=== PATIENT | male | born 1955 | race Caucasian/White ===

== ENCOUNTER 2024-09-30 06:39 | Day surgery (SDC) | payer MEDICARE, SELFPAY ==
[2024-09-14 13:55] VITALS: BMI 46.3
[2024-09-30] VITALS (17 sets, daily range): BP systolic 114–149; BP diastolic 70–99; PULSE 71–105; RESP 6–19; TEMP 35.9–36.6; O2SAT 92–98; BMI 45.8
--- NOTE | 2024-09-30 06:50 | DI.RAD.S_ITS ---
PROCEDURE: XR KNEE RT 1TO2V INDICATIONS: TKA TECHNIQUE: 2 view(s) of the knee acquired. COMPARISON: None. FINDINGS: Bones: Patient is status post knee joint arthroplasty. Hardware components are in expected positions. Visualized bony structures are intact. Soft tissues: Overlying postoperative changes are noted. IMPRESSION: Expected post-operative appearance of a knee arthroplasty. Dictated by: Evon Chavarria MD, PhD on 09/30/2024 at 12:10 Approved by: Evon Chavarria MD, PhD on 09/30/2024 at 12:10
--- NOTE | 2024-09-30 07:47 | PM.PREOP ---
Pre-operative Note Interval Note History & Physical reviewed/Exam performed by Physician: Yes Changes to H&P: No
--- NOTE | 2024-09-30 07:53 | P.OP_ITS ---
Operative Date/Time/Diagnoses Date of procedure: 09/30/24 Time of procedure: 08:50 Pre-op diagnosis: Right knee arthritis M17.11 BMI 46 z68.42 Post-op diagnosis: same Procedure & Clinicians Procedure: Total knee arthroplasty, right CPT code 48660 Robotic assisted surgery S2 [id number] Computer navigated assisted surgery 17512 Same procedure as scheduled: Yes Indications: The patient has significant pain associated with osteoarthritis of the right knee. It is associated with morning stiffness. Pain interferes with daily normal function including ambulation standing and any activities that are weight-bearing. It interferes with sleep. There is crepitation with range of motion. There is marked joint line tenderness. X-rays show significant levels of osteoarthritis. attempted previous conservative treatment has been rendered. The patient has failed exercise program, medications and previous injections. Patient is indicated for total knee arthroplasty. The risks and benefits of the procedure have been discussed with the patient and given the opportunity to ask questions. The risks of surgery include but are not limited to infection, malunion, nonunion, persistence of pain, damage to nerves and blood vessels, posttraumatic arthritis, DVT, PE, cardiopulmonary complications and . The patient expressed a thorough understanding of the risks and benefits of surgery and has elected to proceed. Consent was signed. During the operation, the services of a physician surgical sales representative were medically indicated and necessary to provide the exposure of the operative site for the surgical procedure and to maintain the limb in a proper position to carry out the operation safely and efficiently. Without a qualified assistant fitness manager being present this would extended the operative procedure and made the procedure technically more difficult to perform. Surgeon: Nuvia Francis Sexton Helper: Nicolas Mcghee Anesthesia Type: General, Peripheral nerve block and Local Operative Notes Findings: Varus knee arthritis tricompartmental right knee large osteophytes. Full- thickness cartilage loss. Closure Type: primary Specimen(s): none sent Prosthetic devices, grafts, tissues, transplants, or devices: [employer] Nephew journey 2 bcs total knee arthroplasty Femur cobalt chromium size 8 Tibia size 7 Poly 11 mm Patella 35 x 9 round Estimated Blood Loss (mL): 30 Blood products transfused: none Tourniquet time (min): 91 Procedure in detail: Patient was seen in the preoperative area where the patient and site of surgery were identified in the operative knee was marked informed consent confirmed. This was the right knee. Patient received the appropriate weight based preoperative antibiotics this was 3g of Ancef. And other preoperative medications and was taken to the operating room placed on operating table in the supine position. Spinal anesthetic were administered. The operative extremity was then prepped and draped in the standard sterile fashion with a nonsterile tourniquet high on the thigh. Patient was placed on the green foam bolsters. A lateral post was placed at the level of the proximal thigh /trochanter area as a lateral post. Formal time-out procedure was performed confirming the patient's side and site of surgery and administration of appropriate preoperative antibiotics and implants were in the room accounted for. All were in agreement. Patient received a preoperative dose of tranexamic acid and then a 2nd dose at tourniquet release Patient was prepped and draped in the standard sterile fashion and the foot was placed into the leg khalil. This was taken into high flexion and the incision was marked out over the anterior knee to the level of the medial tubercle tubercle. The Esmarch was then used for exsanguination and the tourniquet was inflated to 250 mmHg. Was made through the skin and subcutaneous tissue in high flexion this was then brought down into 30? of flexion for the medial parapatellar arthrotomy. A marker pen was used to mary the arthrotomy site for later repair. Joint fluid was evacuated. The anterior osteophytes and soft tissues were removed. Routine medial release was initially made along the medial proximal tibia with Bovie. The patella was 1st cut using the saw sized and prepped and then subluxed throughout the case and protected. The leg was then taken into extension and the patella was everted and the patella was cut to accommodate the patellar button. This was sized to a 35 mm button for a 9 mm thickness to recreate the original dimensions of the patella. Poly was removed and the protector replaced and the patella was subluxed and the knee was taken back up into flexion and attention was returned to the femur. Then the rotational landmarks of [place]ites[place] line and the trans epicondylar axis were marked on the femur with electrocautery. ACL and PCL were released. Then the Cori robotic pins were placed into the femur and tibia and the race set up. Landmarks were established and the robotic planning was commenced. Plan was developed and improved and adjusted as necessary to create a balanced knee. Initial alignment was 1 degree of varus Planned alignment was 0? of varus Robotic planning was modified to achieve a 1-2 mm balanced gaps in flexion and extension in the medial and lateral compartments. Initial range of motion was approximately 5? to 95?. Due to the flexion contracture additional 2 mm were taken off the distal femur. And during the plan completion 5? of flexion was placed into the distal femur in 4? of external rotation to match the [place] notch. Knee was initially balanced for a 10 mm poly Once the Plan was satisfactory the bur was used to remove the distal femur then Attention was then turned to the tibia and the tibial resection was made in accordance with the robotic planning. The extension block was trialed confirming achieved plan alignment in extension. And the flexion block were trialed. There was still some tightness in extension so another 2 mm was taken off the tibia after this block fit nicely to full extension. Next the 5 in 1 cutting block was applied to the distal femur and the chamfer cuts completed. The trials were placed. And the femoral notch was cut a standard fashion using Reamer then slap hammer. The knee was trialed and the checked. Knee was balanced in flexion extension. Range of motion 0-125 degrees was obtained limited by thigh/ calf impingement. The rotation femoral trial was marked Bovie on the bone and checked with a long anthony. The tibia was then finished with a drill and flange cut and then The trial implants were removed. Then in extension the posterior capsule was injected with a mixture of 40 mL of 0.25% Marcaine and 20 mL of Exparel (266 mg) with care to avoid excessive in jection posterior laterally. The remainder of this was saved for the capsule and subcutaneous tissue and placed during cement curing. The wound and bone was irrigated with pulsatile lavage. This was then dried with a sponge. The components were verified and opened and the cement was mixed. Cement was applied to the components and then to the bone then the tibia was cemented in place 1st followed by the femur then the patella. Excess cement was removed. With care looking around the back of the knee. Remainder of the injection was injected around the capsule. trial poly was placed back in the leg was placed into extension for the patellar cementing. After this was cured approximately 15 minutes later and the dilute Betadine solution was placed for at least 3 minutes in the wound this was then irrigated out and the final poly was placed. This was a 11 mm poly. Tourniquet was released and hemostasis was achieved. Full range of motion 0-125 was achieved. There was indicated need for lateral release and this was completed allowing the patella to sit uniformly in the trochlear groove. Final 1g of tranexamic acid was given IV at the time of tourniquet release. The capsule was closed with 1. Ethibond suture. Followed by a running Quill stitch. Tracking again was checked to be smooth with full range of motion after capsular closure. Subcutaneous layer was closed with 3-0 Vicryl suture. Skin was closed with a running V lock suture Stratafix Monocryl type suture and Dermabond. An Aquacel dressing was placed . An Rangel wrap was applied. Anesthetic was terminated the patient was woken from anesthesia and taken to recovery room in good condition. There no immediate complications from this procedure. The patient will be maintained on a standard total knee replacement protocol with weight-bearing as tolerated. Complications: none Post-operative Condition: stable Disposition: PACU Plan for aftercare: Standard total knee postoperative precautions. Patient was stay in the hospital overnight due to comorbidities and plan discharge home tomorrow. Full weight- bearing as tolerated. Knee range of motion as tolerated and commence physical therapy within 1 week. Aspirin 81 mg b.i.d. for DVT prophylaxis. Additionally we will use Indocin 25 mg 3 times a day with Pepcid for HO prevention. Follow up in Orthopedic Clinic in 2 weeks.
[2024-09-30] MEDS: ACETAMINOPHEN 325 MG TABLET 975 MG PO (08:02)
[2024-09-30] MEDS: CELECOXIB 200 MG CAPSULE 400 MG PO (08:03)
[2024-09-30] MEDS: LACTATED RINGERS 1,000 ML 42 ML IV (08:03)
--- NOTE | 2024-09-30 08:35 | SUR.PREOP ---
Block start time [0837] . Timeout completed at 0835. Monitoring initiated and maintained throughout procedure. Oxygen and medications given by anesthesiologist. Patient remained stable throughout procedure, no adverse reactions noted. Block end time [0843].
[2024-09-30] MEDS: CEFAZOLIN VIAL 3 GM in SODIUM CHLORIDE 0.9% 100 ML IV ×2 (09:00→17:50)
[2024-09-30] MEDS: TRANEXAMIC ACID 1,000 MG VIAL 1000 MG INJ ×2 (09:01→10:40)
--- NOTE | 2024-09-30 09:20 | SUR.OPER ---
Supine on padded OR bed. wedge and Pillow under head, arms secured on padded armboards <90 degree abduction. Safety belt across torso. Non-operative leg secured with tape over blanket over lower leg. Operative leg secured in DeMayo/Bharat/Nathe positioner. Foam padded brace at thigh of operative leg.
[2024-09-30] MEDS: BUPIVACAINE LIPOSOME 266 MG/20 ML VIAL INJ (09:23)
[2024-09-30] MEDS: BUPIVACAINE 0.25% W/ EPI 30 ML VIAL 60 ML INJ (09:24)
[2024-09-30] MEDS: OXYCODONE IR 5 MG TABLET PO ×2 (12:05→16:26)
[2024-09-30] MEDS: HYDROMORPHONE 0.5 MG INJ IV (13:09)
[2024-09-30] MEDS: LACTATED RINGERS 1,000 ML 100 ML IV ×2 (13:10→21:50)
[2024-09-30] MEDS: INDOMETHACIN 25 MG CAPSULE PO (15:37)
--- NOTE | 2024-09-30 16:08 | PT.IIE ---
Current Diagnoses Bilateral primary osteoarthritis of knee (09/30/24) Unilateral primary osteoarthritis, right knee (09/30/24) Other specified joint disorders, unspecified knee (09/30/24) Surgery Performed Operation Date: 09/30/24 08:45 Actual Procedures p Total Knee Arthroplasty - Robot(Right) - Nuvia Francis MD Surgical History (Last Updated 09/14/24 @ 14:23 by Alexa Potts, RN) H/O vasectomy (~1992) History of colonoscopy with polypectomy History of repair of rotator cuff History of total left knee replacement (01/2022) Hx of bilateral cataract extraction Hx of inguinal hernia repair Hx of laparoscopic gastric banding Medical History (Last Updated 09/14/24 @ 14:23 by Alexa Potts, RN) Anxiety Asthma Angela's esophagus Bipolar disorder BPH (benign prostatic hyperplasia) Chronic obstructive asthma CVA (cerebral vascular accident) Depression Glaucoma HLD (hyperlipidemia) HTN (hypertension) Insomnia XANDER (obstructive sleep apnea) Osteoarthritis Osteopenia Overactive bladder PVCs (premature ventricular contractions) PVD (peripheral vascular disease) RBBB (right bundle branch block) Tardive dyskinesia Physical Therapy Inpatient Evaluation/Re-Eval M1 PT/OT-IP Prior Functional Status Start: 09/30/24 17:38 Freq: NEEDED Status: Active Protocol: Document 09/30/24 16:08 AB (Rec: 09/30/24 17:56 AB [id number]) Medical Review Prior Functional Status Medical History Reviewed Yes Communication able to make needs known Mobility and Gait pt stated that he was modified independent with mobilities using a SPC for ambulation Activities of Daily Living and IADL's Pt states needing assist for his shoes. Social History Household Members spouse,children Living Arrangements House Number of Floors (Floors) One Floor Number of Stairs To Enter/Railing? 3 steps with left post to enter the house Home Environment High Toilet,Walk in Shower Home Equipment Front Wheel Walker,Straight Cane,Shower Seat without Backrest,Hand Held Shower,Bed Rails,Grab Bars Near Toilet Additional Social History Comment pt will have his spouse assist ; has a son and daughter to assist him if needed Pt states has a bath bench with no back. Pt has right bed rail. M2 PT-IP Current Condition Start: 09/30/24 17:38 Freq: NEEDED Status: Active Protocol: Document 09/30/24 16:08 AB (Rec: 09/30/24 17:56 AB [id number]) Physical Therapy Current Condition Current Condition Evaluation Date 09/30/24 Treatment Diagnosis s/p R TKA; difficulty in walking Onset Date 09/30/24 M3 PT-IP Subjective Start: 09/30/24 17:38 Freq: NEEDED Status: Active Protocol: Document 09/30/24 16:08 AB (Rec: 09/30/24 17:56 AB [id number]) Subjective Physical Therapy Visit Type Type Initial Evaluation Visit Start Time 16:08 Visit Stop Time 16:45 Number of CHIEF MINISTER Visits 0 Physical Therapy Visit Comments Patient Comments agreeable to do PT Therapy Pain Assessment Pain When Pain Assessed At Rest Pain Present Pain Present Pain Reported Location right knee Intensity 6 Scale Used increases with movement Pain Management Techniques Apply Cold,Distraction, Modification of Treatment,Re- positioning,Timing of Activity with Medications M4 PT-IP Mobility and Gait Start: 09/30/24 17:38 Freq: NEEDED Status: Active Protocol: Document 09/30/24 16:08 AB (Rec: 09/30/24 17:56 AB [id number]) PT-Bed Mobility Assessment Supine to Sit Supine to Sit Minimal Assistance,1 Person Assistance,Head of Bed Elevated,Bedrails Sit to Supine Sit to Supine Maximum Assistance,2 Person Assistance PT-Transfer Assessment Sit to and From Stand Sit to and from Stand Maximum Assistance,2 Person Assistance,Use of Upper Extremities Equipment Transfer Assistive Device Gait Belt,Front Wheeled Walker Comments Mobility Comments pt in bed and agreeable to do PT. obtained PLOF and home set up. pt completed heel slide prior to gettting up. BP: 137 /83. O2 sat RA 95% completed supine to sit min A and cues with use of R rail. c/o increase R knee pain. O2 sat: 91%. cued for deep breathing. pt able to sit on EOB SBA. sit to stand max A x 2 but only able to partially stand up and needed to sit back on EOB due to c/o increase R knee pain. pt attempted x 3 more sit <>stand requiring max Ax 2 and max cues. instructed pt to take side stepping to position towards HOB and only able to complete 1 step on first attempted and needed to sit down again but able to take side steps ~ 3 ft towards HOB on 2nd attempt using FWW max A x 2 and max cues. (+) R knee buckling needing assist to stabilize and cues for L quads activation. assist pt back in bed max A x 2 and max cues. positioned pt in bed. Left pt with nurse and RT. provided pt with post-op folder. Gait Assessment Comments Gait Comments sidestepping towards HOB max A x 2 and max cues. PT-Balance Assessment Sitting Balance and Reactions Static Sitting Balance Ability Normal Dynamic Sitting Balance Ability Good Standing Balance and Reactions Static Standing Balance Ability Poor Dynamic Standing Balance Ability Poor Device Used FWW M5 PT-IP Objective Assessments Start: 09/30/24 17:38 Freq: NEEDED Status: Active Protocol: Document 09/30/24 16:08 AB (Rec: 09/30/24 17:56 AB [id number]) Orientation Orientation/Cognition Level of Alertness Alert Orientation Name,Place,Situation Language Function Ability No Deficits Noted Safety Awareness Understands Safety Issues Memory Description No Deficits Noted Gross Range of Motion Lower Extremity ROM Assessment Right Impaired Impairments R knee flexion: ~ 60 deg Strength Lower Extremity Strength Assessment Left Impaired Hip 3+/5 Knee 3+/5 Sensation Assessment Sensation Gross Sensation WNL Muscle Tone Muscle Tone WNL Yes M6 PT-IP Treatment Start: 09/30/24 17:38 Freq: NEEDED Status: Active Protocol: Document 09/30/24 16:08 AB (Rec: 09/30/24 17:56 AB [id number]) Physical Therapy Treatment Exercises Exercises Heel Slides Education Education Provided Precautions,Weight Bearing Status,Post-Op Packet,Safety M7 PT-IP Assessment and Plan Start: 09/30/24 17:38 Freq: NEEDED Status: Active Protocol: Document 09/30/24 16:08 AB (Rec: 09/30/24 17:56 AB [id number]) PT Summary Assessment and Plan Potential Rehabilitation Potential Fair Status of Condition at Evaluation Evolving Summary Impairments Pain,ROM,Strength,Balance, Coordination,Sensation,Tone, Cognition,Bed Mobility, Transfers,Gait,Activity Tolerance Assessment Summary pt is a 69 y/o M s/p R TKA POD 0. pt is WBAT on RLE. pt requiring max A x 2 and max cues using FWW and unable to ambulate today but able to complete sidestepping to position towards HOB requiring max A x 2 and max cues with ( +) R knee buckling. pt with c/ o increase R knee pain affecting mobility. d/c plan depending on progress but at this time may require SNF rehab. will continue to assess progress. Goals Bed Mobility Goal Minimal Assistance Transfer Goal Minimal Assistance,Front Wheeled Walker Gait Goal Minimal Assistance,Front Wheel Walker Gait Distance 50 Other Goals improve bed mobility, transfers, ambulation using fWW ~ 150ft SBA up/down 3 steps SPC + CARBON SETTER CGA Days to Meet Goals 5 Frequency of Treatment Frequency Of Treatment Twice a Day Treatment Plan Physical Therapy Treatment Plan Bed Mobility Training,Transfer Training,Gait Training, Therapeutic Exercise,Balance Retraining,Post Op Education, Discharge Planning,Hot or Cold Pack,Neuromuscular Re-ed, Coordination Retraining,Manual Therapy Weight Bearing Status Weight Bearing Status Weight Bear as Tolerated Allowed Weight Bearing Amount (enter % RLE WBAT or #) (%) Recommendations To Nursing Amount of Assist Needed 2 Person Assist Discharge Recommendations PT Discharge Recommendations Home with 04/02 Assist Available,Home Health,SNF Rehab,Home vs SNF Transportation Needs at Discharge Private Vehicle,Wheelchair/ Cabulance - PT assist 2
[2024-09-30] MEDS: ACETAMINOPHEN 325 MG TABLET 650 MG PO (16:26)
--- NOTE | 2024-09-30 16:40 | OT.IP.EVAL ---
Current Diagnoses Bilateral primary osteoarthritis of knee (09/30/24) Unilateral primary osteoarthritis, right knee (09/30/24) Other specified joint disorders, unspecified knee (09/30/24) Surgery Performed Operation Date: 09/30/24 08:45 Actual Procedures p Total Knee Arthroplasty - Robot(Right) - Nuvia Francis MD Past Medical History (Last Updated 09/14/24 @ 14:23 by Alexa Potts, RN) Anxiety Asthma Angela's esophagus Bipolar disorder BPH (benign prostatic hyperplasia) Chronic obstructive asthma CVA (cerebral vascular accident) Depression Glaucoma HLD (hyperlipidemia) HTN (hypertension) Insomnia XANDER (obstructive sleep apnea) Osteoarthritis Osteopenia Overactive bladder PVCs (premature ventricular contractions) PVD (peripheral vascular disease) RBBB (right bundle branch block) Tardive dyskinesia Surgical History (Last Updated 09/14/24 @ 14:23 by Alexa Potts RN) H/O vasectomy (~1992) History of colonoscopy with polypectomy History of repair of rotator cuff History of total left knee replacement (01/2022) Hx of bilateral cataract extraction Hx of inguinal hernia repair Hx of laparoscopic gastric banding Occupational Therapy Inpatient Evaluation/Re-Eval M1 PT/OT-IP Prior Functional Status Start: 09/30/24 16:55 Freq: NEEDED Status: Active Protocol: Document 09/30/24 16:55 [facility] (Rec: 09/30/24 17:06 [facility] [id number]) Medical Review Prior Functional Status Communication I Mobility and Gait Pt states used a SPC at all times. Activities of Daily Living and IADL's Pt states needing assist for his shoes. Prior Functional Level (Other details) Pt states his , son, and daughter will be home to assist him. Social History Household Members spouse,children Living Arrangements House Number of Floors (Floors) One Floor Number of Stairs To Enter/Railing? 3 steps with left post Home Environment High Toilet,Walk in Shower Home Equipment Front Wheel Walker,Straight Cane,Hand Held Shower,Bed Rails,Grab Bars Near Toilet Additional Social History Comment Pt states has a bath bench with no back. Pt has right bed rail. M2 OT-IP Current Condition Start: 09/30/24 16:55 Freq: Status: Active Protocol: Document 09/30/24 16:55 [facility] (Rec: 09/30/24 17:06 [facility] [id number]) Occupational Therapy Current Condition Current Condition Evaluation Date 09/30/24 Treatment Diagnosis S/P R TKA Diagnosis Onset Date 09/30/24 M3 OT- IP Subjective and Pain Start: 09/30/24 16:55 Freq: Status: Active Protocol: Document 09/30/24 16:55 [facility] (Rec: 09/30/24 17:06 [facility] [id number]) OT- Subjective Occupational Therapy Visit Type Type Initial Evaluation Visit Start Time 16:00 Visit Stop Time 16:40 Occupational Therapy Visit Comments Patient Comments Pt agreed to get up. Pt's right knee bandage weeping and nursing came in to assist. Patient/Caregiver Goals TO go home. OT Pain Assessment Pain When Pain Assessed At Rest Pain Present Pain Present Pain Reported Location right knee Intensity 6 Scale Used Numeric (0 - 10) M4 OT- IP ADL's Start: 09/30/24 16:55 Freq: Status: Active Protocol: Document 09/30/24 16:55 [facility] (Rec: 09/30/24 17:06 [facility] [id number]) OT [id number] Comments OT Self-Feeding Comments Not at meal time. OT ADL-Grooming Comments OT Grooming Comments Not performed. OT ADL-Oral Care Comments Oral Care Comments NOt performed. OT ADL-Dressing General Eval Lower Body Dressing Ability Total Assistance Areas Needing Assistance Socks OT ADL-Toileting Comments OT Toileting Comments Pt states uses a urinal at home. OT ADL-Bathing Comments OT Bathing Comments Not ready to perform at this time. M5 OT- IP IADL's Start: 09/30/24 16:55 Freq: Status: Active Protocol: Document 09/30/24 16:55 [facility] (Rec: 09/30/24 17:06 [facility] [id number]) OT-Instrumental Activities of Daily Living Home Safety Awareness Home Safety Comments Pt is a bit groggy at this time. Meal Preparation Meal Preparation Caregiver Provides Assist Manager Float Manager Float Caregiver Provides Assist M6 OT- IP Functional Cognition Start: 09/30/24 16:55 Freq: Status: Active Protocol: Document 09/30/24 16:55 [facility] (Rec: 09/30/24 17:06 [facility] [id number]) Cognitive Factors Limiting Selfcare Function Cognitive Ability Level of Alertness Drowsy Patient Orientation Name,Place,Situation Attention Span Ability Capable of Focused Attention, Capable of Sustained Attention Ability to Follow Commands Able to Follow One Step Commands with Increased Time, Able to Follow One Step Commands with Repetition Cognitive Comments Cognitive Assessment Comments Pt is a bit groggy, but able to follow commands. Pt needing cues for hand placement on the bed rail, FWW, and bed. OT- Vision and Hearing OT- Hearing Assessment OT- Hearing Assessment WFL OT- Vision Assessment Visual Acuity Glasses For Reading Visual Attentiveness WFL Occular Pursuits WFL M7 OT- IP Mobility and Balance Start: 09/30/24 16:55 Freq: Status: Active Protocol: Document 09/30/24 16:55 [facility] (Rec: 09/30/24 17:06 [facility] [id number]) OT- Bed Mobility Assessment Supine to Sit Supine to Sit Assist Minimal Assistance Sit to Supine Sit to Supine Assist Maximum Assistance,2 Person Assistance OT-Transfer Assessment Sit to and From Stand Sit to and from Stand Maximum Assistance,2 Person Assistance Technique Transfer Destination Bed Transfer Technique Stand Step Pivot Devices Transfer Assistive Devices Gait Belt,Front Wheeled Walker Comments Mobility Comments ERIKA, increased time and heavy use of bed rail to get to the edge of the bed. MAX AX 2 to stand to the FWW andn able to take several steps to the HOB before having to sit down. Pt's right knee buckling. BP Supine 131/92, sitting 141/93 . O2 taken off and initially at 95% and dropped to 91%, left pt in nurse's care. OT- Balance Assessment Sitting Balance and Reactions Static Sitting Balance Ability Good Dynamic Sitting Balance Ability Fair Standing Balance and Reactions Static Standing Balance Ability Poor Dynamic Standing Balance Ability Poor M8 OT- IP Objective Assessments Start: 09/30/24 16:55 Freq: Status: Active Protocol: Document 09/30/24 16:55 [facility] (Rec: 09/30/24 17:06 [facility] [id number]) OT Gross Range of Motion Upper Extremity Range of Motion Assessment Within Functional Limits OT Strength Upper Extremity Strength Assessment Within Functional Limits M9 OT- IP Assessment and Plan Start: 09/30/24 16:55 Freq: Status: Active Protocol: Document 09/30/24 16:55 [facility] (Rec: 09/30/24 17:06 [facility] [id number]) OT Summary Assessment and Plan Potential Rehabilitation Potential Good Analytic Complexity at Evaluation Low Summary OT Impairments Pain,Range of Motion,Strength, Balance,Functional Mobility, Grooming,Dressing,Toileting, Bathing,Toilet Transfers, Shower Transfers,Activity Tolerance Progress Towards Goals Slow Progress due to Pain,Slow Progress due to Medical Issues,Slow Progress due to Activity Tolerance Assessment Summary Pt low complexity and main barriers are pain, steps, and still somewhat groggy from just having sx today. Pt buckling with RLE. Pending progress pt to SNF versus home with 24/7 assist and HH. Goals Self-Feeding Goal Independent Grooming Goal Independent Dressing Goal Minimal Assistance Toileting Goal Independent Bathing Goal Minimal Assistance Toilet Transfer Goal Standby Assistance Shower Transfer Goal Minimal Assistance Days to Meet Goals 15 Frequency of Treatment Other frequency 5x/week Treatment Plan OT Treatment Plan ADL Training,Functional Mobility,Patient/Family Education,Discharge Planning Other Treatment Recommendations and Next Transfer to [facility] with MODA x2 Treatment Focus with FWW. Discharge Recommendations OT Discharge Recommendations SNF Rehab,Home vs SNF Transportation Needs at Discharge Wheelchair/Cabulance
[2024-09-30] MEDS: polyethylene glycoL 3350 17 GM POWD.PACK PO (17:50)
[2024-09-30] MEDS: ATORVASTATIN 20 MG TABLET 80 MG PO (21:28)
[2024-09-30] MEDS: METOPROLOL ER 50 MG TABLET PO (21:28)
[2024-09-30] MEDS: OXYCODONE IR 10 MG TABLET PO (21:28)
[2024-09-30] MEDS: FAMOTIDINE 20 MG TABLET PO (21:29)
[2024-09-30] MEDS: OXYBUTYNIN 5 MG ER TAB PO (21:29)
[2024-09-30] MEDS: ASPIRIN EC 81 MG TABLET PO (21:29)
[2024-09-30] MEDS: DOCUSATE 100 MG CAPSULE PO (21:29)
[2024-09-30] MEDS: PANTOPRAZOLE DR 20 MG TABLET PO (21:29)
[2024-09-30] MEDS: ONDANSETRON 4 MG/2 ML INJ IV (21:29)
[2024-10-01] MEDS: OXYCODONE IR 10 MG TABLET PO ×2 (01:13→05:02)
[2024-10-01] MEDS: CEFAZOLIN VIAL 3 GM in SODIUM CHLORIDE 0.9% 100 ML IV (01:13)
[2024-10-01 05:05] LABS: Hematocrit 44.8 % (41-53); Hemoglobin 15.1 g/dL (13.5-17.5)
[2024-10-01] MEDS: OXYCODONE IR 5 MG TABLET PO ×2 (08:22→14:55)
[2024-10-01] MEDS: DOCUSATE 100 MG CAPSULE PO (08:22)
[2024-10-01] MEDS: FAMOTIDINE 20 MG TABLET PO (08:22)
[2024-10-01] MEDS: polyethylene glycoL 3350 17 GM POWD.PACK PO (08:22)
[2024-10-01] MEDS: ASPIRIN EC 81 MG TABLET PO (08:22)
[2024-10-01] MEDS: INDOMETHACIN 25 MG CAPSULE PO ×2 (08:22→14:54)
[2024-10-01] MEDS: LACTATED RINGERS 1,000 ML 100 ML IV (08:25)
[2024-10-01] MEDS: TIMOLOL 0.5% OPHTH 1 DROPS EYE-BOTH (08:33)
[2024-10-01] MEDS: LATANOPROST 0.005% OPHTH 2.5 ML 1 DROPS EYE-BOTH (08:33)
--- NOTE | 2024-10-01 10:15 | PT.IPTN ---
Current Diagnoses Bilateral primary osteoarthritis of knee (09/30/24) Unilateral primary osteoarthritis, right knee (09/30/24) Other specified joint disorders, unspecified knee (09/30/24) Surgery Performed Operation Date: 09/30/24 08:45 Actual Procedures p Total Knee Arthroplasty - Robot(Right) - Nuvia Francis MD Physical Therapy Treatment Note M2 PT-IP Current Condition Start: 09/30/24 17:38 Freq: NEEDED Status: Active Protocol: Document 09/30/24 16:08 [facility] (Rec: 09/30/24 17:56 [facility] [id number]) Physical Therapy Current Condition Current Condition Evaluation Date 09/30/24 Treatment Diagnosis s/p R TKA; difficulty in walking Onset Date 09/30/24 M3 PT-IP Subjective Start: 09/30/24 17:38 Freq: NEEDED Status: Active Protocol: Document 10/01/24 09:45 [facility] (Rec: 10/01/24 11:56 [facility] [id number]) Subjective Physical Therapy Visit Type Type Treatment Note Visit Start Time 09:45 Visit Stop Time 10:15 Number of HIV CTS SPECIALIST Visits 1 Physical Therapy Visit Comments Patient Comments agreeable to do PT, present during treatment. Therapy Pain Assessment Pain When Pain Assessed During Weight Bearing Pain Present Pain Present Pain Reported Location right knee Scale Used not quantified Pain Behaviors Calling Out,Facial Grimacing, Restlessness,Wincing Pain Management Techniques Modification of Treatment,Re- positioning,Timing of Activity with Medications M4 PT-IP Mobility and Gait Start: 09/30/24 17:38 Freq: NEEDED Status: Active Protocol: Document 10/01/24 09:45 [facility] (Rec: 10/01/24 11:56 [facility] [id number]) PT-Bed Mobility Assessment Supine to Sit Supine to Sit Minimal Assistance,1 Person Assistance,Head of Bed Elevated,Bedrails Scooting Scooting to Edge of Bed Maximum Assistance PT-Transfer Assessment Sit to and From Stand Sit to and from Stand Moderate Assistance,1 Person Assistance,Use of Upper Extremities Equipment Transfer Assistive Device Gait Belt,Front Wheeled Walker Transfers Transfer Destination Bed Transfer Technique lateral steps Transfer Ability Level of Assist Maximum Assistance,2 Person Assistance Comments Mobility Comments Pt in bed upon arrival w/ in room. Pt agreeable to PT. Min A and bed rails for sup<> sit, Max A for scooting EOB. Pt sit<>stand Mod A w/ FWW from raised bed. Cries out in pain upon standing. Agreeable to side steps towards HOB but could only tolerate 1-2 very small lateral steps towards HOB w/ FWW mgmt and max A. Pt completed 5x sit<>Stands w/ 1- 2 small lateral steps towards HOB to improve positioning. Pt c/o very intense pain when weight bearing. Requests to stay seated EOB, notified RN and left pt sitting EOB w/ present. Pt wheezing throughout treatment, but O2 high 90s on RA. RN notified. Gait Assessment Comments Gait Comments sidestepping towards HOB max A and max cues. PT-Balance Assessment Sitting Balance and Reactions Static Sitting Balance Ability Normal Dynamic Sitting Balance Ability Good Standing Balance and Reactions Static Standing Balance Ability Poor Dynamic Standing Balance Ability Poor Device Used FWW M5 PT-IP Objective Assessments Start: 09/30/24 17:38 Freq: NEEDED Status: Active Protocol: Document 09/30/24 16:08 [facility] (Rec: 09/30/24 17:56 AB [id number]) Orientation Orientation/Cognition Level of Alertness Alert Orientation Name,Place,Situation Language Function Ability No Deficits Noted Safety Awareness Understands Safety Issues Memory Description No Deficits Noted Gross Range of Motion Lower Extremity ROM Assessment Right Impaired Impairments R knee flexion: ~ 60 deg Strength Lower Extremity Strength Assessment Left Impaired Hip 3+/5 Knee 3+/5 Sensation Assessment Sensation Gross Sensation WNL Muscle Tone Muscle Tone WNL Yes M6 PT-IP Treatment Start: 09/30/24 17:38 Freq: NEEDED Status: Active Protocol: Document 10/01/24 09:45 [facility] (Rec: 10/01/24 11:56 KS [id number]) Physical Therapy Treatment Education Education Provided Precautions,Weight Bearing Status,Post-Op Packet,Safety M7 PT-IP Assessment and Plan Start: 09/30/24 17:38 Freq: NEEDED Status: Active Protocol: Document 10/01/24 09:45 [facility] (Rec: 10/01/24 11:56 [place] [id number]) PT Summary Assessment and Plan Potential Rehabilitation Potential Fair Summary Impairments Pain,ROM,Strength,Balance, Coordination,Sensation,Tone, Cognition,Bed Mobility, Transfers,Gait,Activity Tolerance Progress Towards Goals Slow Progress due to Pain,Slow Progress due to Activity Tolerance Assessment Summary Pt showing small improvements with bed mobility and sit<> Stand, but unable to progress ambulation. Pt completed 5x sit<>Stands w/ Mod A using FWW and each w/ 1-2 very small lateral steps towards HOB w/ max A and FWW mgmt. Unable to tolerate more due to pain and weakness. At this time, pt will likely require SNF to improve strength and functional mobility. Will continue to assess progress. If pt goes home, he will need to complete stair training and caregiving training will need to be conducted. Goals Bed Mobility Goal Minimal Assistance Transfer Goal Minimal Assistance,Front Wheeled Walker Gait Goal Minimal Assistance,Front Wheel Walker Gait Distance 50 Other Goals improve bed mobility, transfers, ambulation using fWW ~ 150ft SBA up/down 3 steps SPC + REFERRAL AND INFORMATION AIDE CGA Days to Meet Goals 5 Frequency of Treatment Frequency Of Treatment Twice a Day Treatment Plan Physical Therapy Treatment Plan Bed Mobility Training,Transfer Training,Gait Training, Therapeutic Exercise,Balance Retraining,Post Op Education, Discharge Planning,Hot or Cold Pack,Neuromuscular Re-ed, Coordination Retraining,Manual Therapy Other Recommendations and Next Treatment Marching in place, forward Focus ambulation, transfer to chair. Weight Bearing Status Weight Bearing Status Weight Bear as Tolerated Allowed Weight Bearing Amount (enter % RLE WBAT or #) (%) Recommendations To Nursing Amount of Assist Needed 2 Person Assist Discharge Recommendations PT Discharge Recommendations Home with 04/02 Assist Available,Home Health,SNF Rehab Transportation Needs at Discharge Private Vehicle,Wheelchair/ Cabulance - PT assist 2
--- NOTE | 2024-10-01 10:26 | P.DS_ITS ---
History of Present Illness History of Present Illness Chief complaint: OPB Narrative: Luca is a pleasant 69 year old male who is POD#1 s/p R TKA by Dr. Francis. This morning patient reports he had a difficult time sleeping last night d/t pain but that he is resting comfortably well now. He expresses desire to d/c to home later today. He has been urinating well w/o issue. He has not worked w/ PT yet however. He has his postop pain medication at home already. He lives at home with his and adult children who are willing and able to aid in his postop recovery. He has post-op PT appts scheduled. Denies fever, chills, chest pain, SOB, nausea, vomiting. Operative Date/Time/Diagnoses Date of procedure: 09/30/24 Time of procedure: 08:50 Pre-op diagnosis: Right knee arthritis M17.11 BMI 46 z68.42 Post-op diagnosis: same Procedure & Clinicians Procedure: Total knee arthroplasty, right CPT code 03026 Robotic assisted surgery [id number] Computer navigated assisted surgery [id number] Same procedure as scheduled: Yes Indications: The patient has significant pain associated with osteoarthritis of the right knee. It is associated with morning stiffness. Pain interferes with daily normal function including ambulation standing and any activities that are weight-bearing. It interferes with sleep. There is crepitation with range of motion. There is marked joint line tenderness. X-rays show significant levels of osteoarthritis. attempted previous conservative treatment has been rendered. The patient has failed exercise program, medications and previous injections. Patient is indicated for total knee arthroplasty. The risks and benefits of the procedure have been discussed with the patient and given the opportunity to ask questions. The risks of surgery include but are not limited to infection, malunion, nonunion, persistence of pain, damage to nerves and blood vessels, posttraumatic arthritis, DVT, PE, cardiopulmonary complications and . The patient expressed a thorough understanding of the risks and benefits of surgery and has elected to proceed. Consent was signed. During the operation, the services of a physician speech correction assistant were medically indicated and necessary to provide the exposure of the operative site for the surgical procedure and to maintain the limb in a proper position to carry out the operation safely and efficiently. Without a qualified early childhood assistant being present this would extended the operative procedure and made the procedure technically more difficult to perform. Surgeon: Nuvia Francis Marine Design Engineer: Nicolas Mcghee Anesthesia Type: General, Peripheral nerve block and Local Discharge Providers Provider Discharge Date: 10/01/24 Consults: 09/30/24 06:50 Consult to Anesthesiology Routine Comment: Consulting Provider: Anesthesiologist Reason for consultation: Regional block for post operative pain control Has provider been notified: No 09/30/24 12:54 Consult to Discharge Planning Routine Comment: Consult to Occupational Therapy Evaluate & Treat Comment: Physician Instructions: Evaluate and treat Consult to Physical Therapy Evaluate & Treat Comment: Physician Instructions: postop TKA protocol Discharge provider: Lorena Castro PA-C Summary Hospital Course Discharge Diagnosis: stable s/p R TKA Hospital Course: Uncomplicated hospital course. Exam Vital Signs (past 8 hours): Oxygen Delivery Method Room Air Oxygen Flow Rate 0 Narrative Exam Narrative: Patient lying comfortably in bed during our interview today. No acute distress. AOx3. He was sleeping upon my arrival but was easily aroused. Grossly normal alignment of the RLE with mild-moderate swelling. 5/5 strength with DF, PF, EHL bilaterally. Gross sensation intact throughout bilateral lower extremities. Calves soft and non-tender bilaterally. SCDs are on and functioning. Brisk capillary refill, pulses intact. Post-surgical Aquacel dressing clean, dry and intact over the right knee without drainage. Ice packs in place over knee. Resp Effort & Inspection: normal respiratory effort and able to speak in complete sentences Objective Labs 10/01/24 04:20 Labs: Laboratory Results - last 24 hr 10/01/24 04:20 Hgb 15.1 Hct 44.8 PFSH Medical History (Updated 09/14/24 @ 14:23 by Alexa Potts RN) Depression Overactive bladder Glaucoma Angela's esophagus Tardive dyskinesia BPH (benign prostatic hyperplasia) PVCs (premature ventricular contractions) Chronic obstructive asthma PVD (peripheral vascular disease) CVA (cerebral vascular accident) Insomnia Anxiety Osteopenia Bipolar disorder RBBB (right bundle branch block) HLD (hyperlipidemia) HTN (hypertension) XANDER (obstructive sleep apnea) Asthma Osteoarthritis Surgical History (Updated 09/14/24 @ 14:23 by Alexa Potts RN) 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 2) Continue multimodal pain management with ice to the knee for additional pain control. Patient has post-op pain medication at home already. He will also take Indocin TID for 2 weeks for HO prevention. 3) ASA b.i.d. for DVT prophylaxis. 4) Start outpatient physical therapy to work on range of motion and mobility, WBAT. 5) Keep dressing intact, clean, dry until 2 week postop appointment. No soaking the incision site in pools or tubs. No topical ointments or creams to the incision site. 6) Follow up at [facility] in 2 weeks for a postop appointment and wound check. All patient's questions were answered, he demonstrates understanding and is in agreement with the plan. Call our office if any questions or concerns arise. Discharge Plan Discharge Plan Patient Disposition: Home Discharge orders & Medications Discharge Orders: Discharge (Order); Ordered 10/01/24 Ordered By: Lorena Castro Prescriptions: New acetaminophen 325 mg Tablet 650 mg PO Q6H PRN (Reason: Fever/Mild Pain (1-3)) Qty: 90 0RF aspirin 81 mg Tablet,Delayed Release (Dr/Ec) 81 mg PO BID Qty: 90 0RF famotidine [Pepcid AC] 20 mg Tablet 20 mg PO BID Qty: 30 0RF indomethacin 25 mg Capsule 25 mg PO TID Qty: 30 0RF docusate sodium 100 mg Capsule 100 mg PO BID Qty: 30 0RF ondansetron 4 mg Tablet,Disintegrating 4 mg PO Q4HR PRN (Reason: Nausea And Vomiting) Qty: 10 0RF oxycodone 5 mg Tablet 5 mg PO Q4-6H PRN (Reason: Pain, Moderate (4-6)) Qty: 30 0RF Continued latanoprost 0.005 % Drops 1 drp OPHTHALMIC (EYE) DAILY atorvastatin 80 mg Tablet 80 mg PO BEDTIME ipratropium-albuterol 0.5 mg-3 mg(2.5 mg base)/3 mL Solution For Nebulization 3 ml INHALATION Q4-6H PRN (Reason: Shortness Of Breath) metoprolol succinate 50 mg Tablet Extended Release 24 Hr 50 mg PO BEDTIME albuterol sulfate 90 mcg/actuation Hfa Aerosol Inhaler 2 puff INHALATION Q4-6H PRN (Reason: Shortness Of Breath) timolol maleate 0.5 % Drops 1 drp OPHTHALMIC (EYE) DAILY trospium 60 mg Capsule,Extended Release 24hr 60 mg PO BEDTIME Rx Instructions: must be taken on empty stomach at least 1 hour before a meal/food with water only omeprazole 20 mg Tablet,Delayed Release (Dr/Ec) 20 mg PO BEDTIME fluticasone propion-salmeterol [Advair HFA] 45-21 mcg/actuation Hfa Aerosol Inhaler 2 puff INHALATION DAILY Austedo 6 mg Tablet 6 mg PO BID Follow up/Referrals: Pallavi Pineda PA-C [Advanced Technical Support 1 Software Engineer] - 10/09/24 2:30 pm (Appt:10/09 @ 2:30 with Rachid PAC @ [facility] ) Nuvia Francis MD [Physician] - Diet/Activity/Treatments Diet: Diet as Tolerated Other treatments: Dressing/Wound care: -Remove the Rangel wrap 48 hours after surgery. -Keep Aquacell dressing in place until postoperative follow-up office visit. -you may see some drainage on the bandage, this is ok. If it is leaking or saturated, then the dressing can be changed to clean gauze or a clean surgical dressing from a pharmacy or reinforced with additional gauze and paper tape or dressings over the top. Otherwise, just keep dressing in place until follow up. -Okay to shower. Keep wound out of direct water stream. No soaking or submerging until all the scabs fall off (approximately 6 weeks). -Please call the office if dressing becomes significantly wet, soiled, or saturated. Activities: -Weight-bearing as tolerated. Use front wheeled walker, and progress to cane when safe. -Continue with home exercises as directed by your physical therapist. -Elevate ?toes above the nose if you have significant swelling in your lower leg. (A wedge pillow is easiest.) -Ice your incision as needed for pain/inflammation/swelling. Protect your skin with a folded pillowcase. Follow-up: -Follow-up with your surgeon or PA in the office in 10-14 days after surgery. -Follow-up with your surgeon 6 weeks postoperatively. Call the office if you have chest pain, shortness of breath, significant swelling that will not resolve with elevating, fever over 101?, significantly worsening pain. [facility]: [phone] You have been discharged with medications. These have already been sent to your pharmacy. Pain include pain medications: Oxycodone take 5 mg orally every 4 hours as needed for pain. If your pain is more severe you may take up to 2 or a maximum 3 pills (15 mg) every 4 hours for pain. Take the smallest dose necessary. Narcotic medication can make you feel constipated. You can get udvs-oal-pwfnsld stool softener such as docusate sodium-Colace at a pharmacy to help with this. You also have prescriptions for ibuprofen 800 mg take this 3 times a day for least the 1st 10 days after surgery to help with pain control. And acetaminophen (Tylenol) take 500-1000 mg 3 times a day for pain control. You also have a prescription for Zofran (ondansetron) this is a strong anti nausea medication that can be taken up to every 8 hours as needed for nausea Additionally will take a baby aspirin 81 mg twice a day (morning and night) to help prevent blood clots If you have been discharged with ketorolac (toradol) this is a strong anti- inflammatory, do not take ibuprofen/meloxicam/mortin or other NSAIDS while on ketorolac. Once your ketorolac prescription is finished, you may restart taking other NSAIDs again. narcotic pain medication, tylenol and aspirin are fine to continue while on ketorolac. * you have been discharged with Indocin 25 mg 3 times a day for 2 weeks postop for heterotopic ossification prophylaxis. Take with Pepcid. Skin/Wound/Dressing Care Report to your healthcare provider any signs of infection, such as:: chills, fever, night sweats, unusual drainage and unusual redness Visit Report/Discharge Packet Instructions: DI for Knee Replacement, DI for Prescription Opioid Use Stand Alone Forms: Patient Portal/API Discharge Data Attending Provider: Nuvia Francis
[2024-10-01] MEDS: HYDROMORPHONE 0.5 MG INJ IV (11:13)
[2024-10-01 12:17] VITALS: BP 103/54; PULSE 75; RESP 18; TEMP 36.6; O2SAT 92
[2024-10-01] MEDS: ONDANSETRON 4 MG/2 ML INJ IV (12:51)
--- NOTE | 2024-10-01 14:49 | PT.IPTN ---
Current Diagnoses Bilateral primary osteoarthritis of knee (09/30/24) Unilateral primary osteoarthritis, right knee (09/30/24) Other specified joint disorders, unspecified knee (09/30/24) Surgery Performed Operation Date: 09/30/24 08:45 Actual Procedures p Total Knee Arthroplasty - Robot(Right) - Nuvia Francis MD Physical Therapy Treatment Note M2 PT-IP Current Condition Start: 09/30/24 17:38 Freq: NEEDED Status: Active Protocol: Document 10/01/24 13:19 AB (Rec: 10/01/24 14:47 AB [id number]) Physical Therapy Current Condition Current Condition Evaluation Date 09/30/24 Treatment Diagnosis s/p R TKA; difficulty in walking Onset Date 09/30/24 M3 PT-IP Subjective Start: 09/30/24 17:38 Freq: NEEDED Status: Active Protocol: Document 10/01/24 13:19 AB (Rec: 10/01/24 14:47 AB [id number]) Subjective Physical Therapy Visit Type Type Treatment Note Visit Start Time 14:04 Visit Stop Time 14:32 Number of DIRECTOR PHYSICAL Visits 2 Physical Therapy Visit Comments Patient Comments Patient agreeable Therapy Pain Assessment Pain When Pain Assessed After Treatment Pain Present Pain Present Pain Reported Location right knee Intensity 4 M4 PT-IP Mobility and Gait Start: 09/30/24 17:38 Freq: NEEDED Status: Active Protocol: Document 10/01/24 13:19 AB (Rec: 10/01/24 14:47 AB [id number]) PT-Bed Mobility Assessment Supine to Sit Supine to Sit Minimal Assistance,2 Person Assistance,Head of Bed Elevated,Bedrails Sit to Supine Sit to Supine Maximum Assistance,2 Person Assistance Scooting Scooting to Edge of Bed Maximum Assistance PT-Transfer Assessment Sit to and From Stand Sit to and from Stand Maximum Assistance,2 Person Assistance,Use of Upper Extremities Equipment Transfer Assistive Device Gait Belt,Front Wheeled Walker Transfer Ability Level of Assist Maximum Assistance,2 Person Assistance Comments Mobility Comments Patient agreeable to participate, initially unable to transfer supine to sit with one rail, with head of bed elevated able to reach seated position but requires 2 person assist, max of one one guarding to position feet on floor. Sit to stand, MAX A of 2, verbl and visual cues throughout. Gait Assessment Gait Gait Assistance Required: Maximum Assistance,2 Person Assist Distance (Feet) 2 Assistive Devices Assistive Device Gait Belt,Front Wheeled Walker Orthotic/Prosthetic Devices or Brace: No Gait Deviations General Gait Pattern Antalgic,Decreased Stride Length,Decreased Feet Clearance,Step-to Gait Comments Gait Comments side stepping with FWW 2 feet to head of bed with Max assist , one step cues 2 person, very small shuffling steps, clears floor very minimally/ intermittently L LE ie right LE weightbearing phase very limited. PT-Balance Assessment Sitting Balance and Reactions Static Sitting Balance Ability Normal Dynamic Sitting Balance Ability Good Standing Balance and Reactions Static Standing Balance Ability Poor Dynamic Standing Balance Ability Poor Device Used FWW M5 PT-IP Objective Assessments Start: 09/30/24 17:38 Freq: NEEDED Status: Active Protocol: Document 09/30/24 16:08 AB(2) (Rec: 09/30/24 17:56 AB(2) [id number]) Orientation Orientation/Cognition Level of Alertness Alert Orientation Name,Place,Situation Language Function Ability No Deficits Noted Safety Awareness Understands Safety Issues Memory Description No Deficits Noted Gross Range of Motion Lower Extremity ROM Assessment Right Impaired Impairments R knee flexion: ~ 60 deg Strength Lower Extremity Strength Assessment Left Impaired Hip 3+/5 Knee 3+/5 Sensation Assessment Sensation Gross Sensation WNL Muscle Tone Muscle Tone WNL Yes M6 PT-IP Treatment Start: 09/30/24 17:38 Freq: NEEDED Status: Active Protocol: Document 10/01/24 09:45 KS (Rec: 10/01/24 11:56 KS [id number]) Physical Therapy Treatment Education Education Provided Precautions,Weight Bearing Status,Post-Op Packet,Safety M7 PT-IP Assessment and Plan Start: 09/30/24 17:38 Freq: NEEDED Status: Active Protocol: Document 10/01/24 13:19 AB (Rec: 10/01/24 14:47 AB [id number]) PT Summary Assessment and Plan Potential Rehabilitation Potential Fair Summary Impairments Pain,ROM,Strength,Balance, Coordination,Sensation,Tone, Cognition,Bed Mobility, Transfers,Gait,Activity Tolerance Progress Towards Goals Slow Progress due to Pain,Slow Progress due to Activity Tolerance Assessment Summary Patient continues to require MAX assist of 2 persons for side stepping side of bed 2 feet with FWW, minimal clearance when stepping, MAX assist for sit to stand 2 person and Max assist 2 person to scoot to edge of bed ie feet to floor. Rates pain 6/10 R knee start of session, 4/ 10 end of session. Goals Bed Mobility Goal Minimal Assistance Transfer Goal Minimal Assistance,Front Wheeled Walker Gait Goal Minimal Assistance,Front Wheel Walker Gait Distance 50 Other Goals improve bed mobility, transfers, ambulation using fWW ~ 150ft SBA up/down 3 steps SPC + HAND METHOD LASTING MACHINE OPERATOR CGA Days to Meet Goals 4 Frequency of Treatment Frequency Of Treatment Twice a Day Treatment Plan Physical Therapy Treatment Plan Bed Mobility Training,Transfer Training,Gait Training, Therapeutic Exercise,Balance Retraining,Post Op Education, Discharge Planning,Hot or Cold Pack,Neuromuscular Re-ed, Coordination Retraining,Manual Therapy Weight Bearing Status Weight Bearing Status Weight Bear as Tolerated Allowed Weight Bearing Amount (enter % RLE WBAT or #) (%) Recommendations To Nursing Amount of Assist Needed 2 Person Assist Discharge Recommendations PT Discharge Recommendations Home with 04/02 Assist Available,Home Health,SNF Rehab Transportation Needs at Discharge Private Vehicle,Wheelchair/ Cabulance - PT assist 2
--- NOTE | 2024-10-01 15:37 | CM.DANOTE ---
Discharge Planning/Care Management CM Discharge Assessment Start: 10/01/24 15:33 Freq: Status: Active Protocol: Document 10/01/24 15:33 JW (Rec: 10/01/24 15:37 JW [id number]) Discharge Planning Assessment Assigned Crown Assembly Machine Set Up Mechanic EUNICE Hills DPOA/Assigned Designee Name Ansley Brady , spouse Contact Information [phone] Advance Directives? No History Provided By Patient,Medical Record Prior Living Arrangements House Household Members spouse,children Type of transporation used prior to Relies on Others admit Independent with ADL's Yes: Mod Indp w/ cane Is patient alert and oriented? Yes Needs Assistance With Meal Prep,Home Chores / Shopping Patient/Family Preference OP PT Therapy Barriers to Discharge Yes Comment Therapies state patient is Max assist of 2, patient reports his spouse and family will care for him at home. Patient declines the need for HH, had outpatient PT already arranged . Discharge Plan Home Transportation Arrangement Family Referrals Initiated None needed Pre-Anesthesia Assessment Start: 09/14/24 13:54 Freq: Status: Active Protocol: Document 09/14/24 13:55 CAB (Rec: 09/14/24 14:43 CAB [id number]) Pre-Anesthesia Assessment PAC Comment Phone assess 09/14/24 Preferred Name Bill Patient Information Reviewed Via Phone Assessment Assessment Completed With Patient,Spouse Diagnostic Results BMP/CMP,CBC,EKG Comment Outside labs/EKG scanned Primary Care Provider Dr. Golden Comment Pre-op 09/04/24 scanned and in surgery folder Seen Specialist in Last 12 Months Yes Specialist Seen Mfg Assoc,Orthopedist, Manager Employee Benefits,Sleep specialist ,Urologist,Other Comment Neurology & Pulmonology visits scanned and in surgery folder Primary Language Italian Rug Receiving Clerk Required No Height 180.34 cm Weight 150.593 kg Body Mass Index (BMI) 46.3 Hearing Ability Normal Visual Assist Magnifying Glass Dentition Type Teeth, Natural Present Barriers to Learning None Hx Anesthesia Reactions No Hx Family Anesthesia Reaction No Hx Malignant Hyperthermia No Hx Blood Transfusions No Anesthesia Review Requested No Bull Float Finisher No alcohol intake current alcohol intake frequency holidays/special occasions only Smoking Status Never smoker Substance Use Type [#R] does not use Pain Present Pain Reported Musculoskeletal Symptoms Abnormal Gait,Difficulty Walking,Joint Pain History of Falling (Recent or History of No ) Patient is completely paralyzed or No completely immobile Prosthesis or Orthotic Device Cane Mental Status Oriented to own ability Is patient on oxygen? No Does patient have LOWERY/SOB No Hx Sleep Apnea Yes CPAP/BIPAP use prescribed and used routinely Will Bring CPAP/BIPAP DOS Yes Currently Taking a Beta Tammy Yes: Metoprolol Can You Climb a Flight of Stairs Without No SOB Hx Chest Pain No Hx SOB Yes: LOWERY Hx Syncope or Dizziness No Anti-Coagulant Therapy No Has a Mfg Assoc Yes: Visit 01/14/[address] Healy @ [facility] Cardiac Testing No Hx Pacemaker/ICD No Pacemaker Rep Required? No Cardiac Clearance Received No Comment Cardiac records scanned and in surgery folder Diet Type At Home Regular Dysphagia No Gastrointestinal Symptoms Constipation Bladder Pattern Incontinent,Urgency Urinary Catheter Present No Hx Urinary Self Catheterization No Diabetes No HgbA1C 5.5 Date 08/24/24 Comment A1c 5.5% 08/24/24 Presence of External or Internal Medical Yes: CPAP, left knee, zac eye Devices IOLs Comment No covid symptoms 8 weeks Marital Status Lives With spouse,children Current Living Arrangements House Number of Floors (Floors) One Floor Number of Stairs To Enter/Railing? 2 Support System Child/Children,Spouse Does the Patient Have Assistance After Yes Surgery Patient Discharge Plan Description Return Home Comment Pt and would like to stay overnight Feels Safe in Current Environment Yes Been Physically Hurt or Threatened By a No Person in Current Environment Do you have thoughts of harming yourself None or others? Are you currently considering suicide? No Do you have a plan to hurt yourself or No Plan others? Do You Have Any Spiritual Beliefs That No May Affect Your HC Choices? Do You Have Any Cultural Practices That No May Affect Your HC Choices? Who Can We Speak to About Patient's Care Family, friends Identifying Code for Release of Patient Declines to issue Information Health Care Proxy/Next of Kin Ansley () Health Care Proxy Emergency Contact Name Matt Brady (son) Emergency Contact Advance Directives? No Power of Pile Driver Operator Barge Mounted No PAC Instructions Assistance for 24 hours post- op,Bring CPAP/BIPAP,Durable medical equipment,Medications to take/avoid,Nasal antibiotic ,No ETOH/petroleum product on skin DOS,NPO,Post-op transportation,Pre-op antibiotic,Pre-surgical wash, Sturdy shoes/comfortable clothes,Do not bring valuables and remove jewelry
--- NOTE | 2024-10-01 15:50 | OT.IP.TRT ---
Current Diagnoses Bilateral primary osteoarthritis of knee (09/30/24) Unilateral primary osteoarthritis, right knee (09/30/24) Other specified joint disorders, unspecified knee (09/30/24) Surgery Performed Operation Date: 09/30/24 08:45 Actual Procedures p Total Knee Arthroplasty - Robot(Right) - Nuvia Francis MD Occupational Therapy Treatment Note M2 OT-IP Current Condition Start: 09/30/24 16:55 Freq: Status: Active Protocol: Document 09/30/24 16:55 [facility] (Rec: 09/30/24 17:06 [facility] [id number]) Occupational Therapy Current Condition Current Condition Evaluation Date 09/30/24 Treatment Diagnosis S/P R TKA Diagnosis Onset Date 09/30/24 M3 OT- IP Subjective and Pain Start: 09/30/24 16:55 Freq: Status: Active Protocol: Document 10/01/24 16:05 [facility] (Rec: 10/01/24 16:11 [facility] [id number]) OT- Subjective Occupational Therapy Visit Type Type Treatment Note Visit Start Time 13:50 Visit Stop Time 13:58 Occupational Therapy Visit Comments Patient Comments Pt insistent on going home. Patient/Caregiver Goals To go home. M4 OT- IP ADL's Start: 09/30/24 16:55 Freq: Status: Active Protocol: Document 09/30/24 16:55 [facility] (Rec: 09/30/24 17:06 [facility] [id number]) OT [id number] Comments OT Self-Feeding Comments Not at meal time. OT ADL-Grooming Comments OT Grooming Comments Not performed. OT ADL-Oral Care Comments Oral Care Comments NOt performed. OT ADL-Dressing General Eval Lower Body Dressing Ability Total Assistance Areas Needing Assistance Socks OT ADL-Toileting Comments OT Toileting Comments Pt states uses a urinal at home. OT ADL-Bathing Comments OT Bathing Comments Not ready to perform at this time. M5 OT- IP IADL's Start: 09/30/24 16:55 Freq: Status: Active Protocol: Document 09/30/24 16:55 [facility] (Rec: 09/30/24 17:06 [facility] [id number]) OT-Instrumental Activities of Daily Living Home Safety Awareness Home Safety Comments Pt is a bit groggy at this time. Meal Preparation Meal Preparation Caregiver Provides Assist It Applications Developer It Applications Developer Caregiver Provides Assist M6 OT- IP Functional Cognition Start: 09/30/24 16:55 Freq: Status: Active Protocol: Document 10/01/24 16:05 [facility] (Rec: 10/01/24 16:11 [facility] [id number]) Cognitive Factors Limiting Selfcare Function Cognitive Ability Level of Alertness Alert Patient Orientation Name,Place,Situation Attention Span Ability Capable of Focused Attention, Capable of Sustained Attention Safety Awareness Underestimates Need for Assistance Cognitive Comments Cognitive Assessment Comments Pt is very insistent to go home and states his family to get a ramp and wc to help mobilize pt. Asked pt on ADL equipment needs and pt not sure whether family was able to gather all items. Reiterated that it is not safe to go home as pt still needing 2 person assist for all needs. M7 OT- IP Mobility and Balance Start: 09/30/24 16:55 Freq: Status: Active Protocol: Document 09/30/24 16:55 [facility] (Rec: 09/30/24 17:06 [facility] [id number]) OT- Bed Mobility Assessment Supine to Sit Supine to Sit Assist Minimal Assistance Sit to Supine Sit to Supine Assist Maximum Assistance,2 Person Assistance OT-Transfer Assessment Sit to and From Stand Sit to and from Stand Maximum Assistance,2 Person Assistance Technique Transfer Destination Bed Transfer Technique Stand Step Pivot Devices Transfer Assistive Devices Gait Belt,Front Wheeled Walker Comments Mobility Comments ERIKA, increased time and heavy use of bed rail to get to the edge of the bed. MAX AX 2 to stand to the FWW andn able to take several steps to the HOB before having to sit down. BP Supine 131/92, sitting 141/93 . O2 taken off and initially at 95% and dropped to 91%, left pt in nurses care. OT- Balance Assessment Sitting Balance and Reactions Static Sitting Balance Ability Good Dynamic Sitting Balance Ability Fair Standing Balance and Reactions Static Standing Balance Ability Poor Dynamic Standing Balance Ability Poor M8 OT- IP Objective Assessments Start: 09/30/24 16:55 Freq: Status: Active Protocol: Document 09/30/24 16:55 [facility] (Rec: 09/30/24 17:06 [facility] [id number]) OT Gross Range of Motion Upper Extremity Range of Motion Assessment Within Functional Limits OT Strength Upper Extremity Strength Assessment Within Functional Limits M9 OT- IP Assessment and Plan Start: 09/30/24 16:55 Freq: Status: Active Protocol: Document 10/01/24 16:05 [facility] (Rec: 10/01/24 16:11 [facility] [id number]) OT Summary Assessment and Plan Potential Rehabilitation Potential Good Analytic Complexity at Evaluation Low Summary OT Impairments Pain,Range of Motion,Strength, Balance,Functional Mobility, Grooming,Dressing,Toileting, Bathing,Toilet Transfers, Shower Transfers,Activity Tolerance Progress Towards Goals Slow Progress due to Pain,Slow Progress due to Activity Tolerance Assessment Summary Pt insistent on going home today 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 Still recommend pt go to skilled rehab as pt is a very high fall risk and also high risk of injury to family members if trying to assist pt. Discharge Recommendations OT Discharge Recommendations SNF Rehab Transportation Needs at Discharge Wheelchair/Cabulance
--- NOTE | 2024-10-01 17:17 | PC.NURSE ---
Pt agreeable to discharge. IV discontinued, education provided on follow up appts, s/s of infection, s/s of stroke. Pt assisted in dressing by family. Pt assisted to WC. Wheeled via w/c to private vehicle at approximately 1505.
== END 2024-10-01 17:43 | disposition home or self-care (01) ==
LOC: OR 06:41 → AC 06:42
PROVIDERS: Referring Provider Orthopaedic Surgery Foot and Ankle Surgery; Visit Provider Orthopaedic Surgery Foot and Ankle Surgery
PROC: 0SRC0JZ Replacement of Right Knee Joint with Synthetic Substitute, Open Approach (ICD-10-PCS; CPT 27447; principal; 2024-09-30 08:45)
DX: M17.11 Unilateral primary osteoarthritis, right knee (principal); M21.161 Varus deformity, not elsewhere classified, right knee; M25.761 Osteophyte, right knee; G89.18 Other acute postprocedural pain
CPT/HCPCS: 27447; 36415; 64450; 73560; 85014; 85018; 97162; 97165; 97530; 97535; C1776; A9270; C1713; J0330; J0666; J0690; J1100; J1171; J2405; J2704; J3490

== ENCOUNTER → 2024-12-08 19:04 | Outpatient (CLI) | payer MEDICARE, SELFPAY ==
[2024-09-30 13:49] VITALS: BMI 45.8
--- NOTE | 2024-12-08 19:07 | DI.MRI.S_ITS ---
PROCEDURE: MR KNEE RT WO CON INDICATIONS: RUPTURE OF RT QUADRICEPS TENDON TECHNIQUE: Noncontrast sagittal PD fast spin echo and T2 fast spin echo with fat saturation, sagittal 3-D FLASH with fat saturation; coronal T1 spin echo and PD fast spin echo with fat saturation, and axial PD fast spin echo with fat saturation through the knee. COMPARISON: None. FINDINGS: Image quality: Significant artifact is present from the total right knee arthroplasty. There is moderate prepatellar soft tissue edema. The patellar tendon is markedly thickened with abnormal signal and without evidence of a tear. There is abnormal fluid signal involving the quadriceps tendon consistent with rupture. There is a moderate suprapatellar bursa effusion. There is mild marrow edema involving the distal femur possibly a bony contusion without evidence of fracture. IMPRESSION: Findings consistent with quadriceps tendon rupture. Severe tendinosis involving the patellar tendon. Dictated by: Marcus Washington M.D. on 12/09/2024 at 14:42 Approved by: Marcus Washington M.D. on 12/09/2024 at 14:48
== END ==
PROVIDERS: Referring Provider Orthopaedic Surgery Foot and Ankle Surgery; Visit Provider Orthopaedic Surgery Foot and Ankle Surgery
DX: S76.111A Strain of right quadriceps muscle, fascia and tendon, initial encounter (principal); M25.461 Effusion, right knee; X58.XXXA Exposure to other specified factors, initial encounter; Z96.651 Presence of right artificial knee joint
CPT/HCPCS: 73721

== ENCOUNTER 2024-12-23 06:13 | Day surgery (SDC) | payer MEDICARE, SELFPAY ==
[2024-09-30 13:49] VITALS: BMI 45.8
[2024-12-18 13:17] VITALS: BMI 46.7
[2024-12-23] VITALS (11 sets, daily range): BP systolic 123–153; BP diastolic 79–105; PULSE 69–82; RESP 12–161; TEMP 36.3–36.6; O2SAT 93–100; BMI 46.0
[2024-12-23] MEDS: ACETAMINOPHEN 325 MG TABLET 975 MG PO (07:07)
[2024-12-23] MEDS: LACTATED RINGERS 1,000 ML 42 ML IV ×3 (07:07→08:52)
[2024-12-23] MEDS: ALBUTEROL/IPRATROPIUM 3 ML AMPUL INH (07:18)
--- NOTE | 2024-12-23 07:30 | PM.PREOP ---
Pre-operative Note Interval Note History & Physical reviewed/Exam performed by Physician: Yes Changes to H&P: No
[2024-12-23] MEDS: CEFAZOLIN VIAL 3 GM in SODIUM CHLORIDE 0.9% 100 ML IV (08:10)
--- NOTE | 2024-12-23 08:19 | SUR.OPER ---
Supine on padded OR bed, head on wedge with pillow, arms secured on padded arm boards at <90 degrees abduction, legs uncrossed, safety belt at thigh, tape over blanket over lower left leg, right leg prepped into field
[2024-12-23] MEDS: BUPIVACAINE 0.25% W/ EPI 30 ML VIAL 60 ML INJ (08:27)
[2024-12-23] MEDS: VANCOMYCIN 1,000 MG VIAL 1000 MG TOP (09:49)
[2024-12-23] MEDS: OXYCODONE IR 5 MG TABLET PO (11:01)
--- NOTE | 2024-12-23 12:27 | P.OP_ITS ---
Operative Date/Time/Diagnoses Date of procedure: 12/23/24 Time of procedure: 08:00 Pre-op diagnosis: Quadriceps tendon rupture right, right knee pain, weakness, BMI 46 Post-op diagnosis: same Procedure & Clinicians Procedure: Repair revision quadriceps tendon using graft CPT code 97001, right Same procedure as scheduled: Yes Indications: The patient was a 69-year-old gentleman with CMI 46 underwent a right total knee arthroplasty on September 30, 2024. During the course of his recovery he had several falls then had a major fall proximally 6 weeks ago. When he presented clinically consistent with a quadriceps tendon rupture with a palpable gap and no active extension. MRI demonstrated the same. Due to the chronicity of the rupture and quality of the tissue the patient was indicated for reconstruction with allograft tendon for his chronic rupture. The risks and benefits of the procedure have been discussed with the patient and given the opportunity to ask questions. The risks of surgery include but are not limited to infection, malunion, nonunion, persistence of pain, damage to nerves and blood vessels, posttraumatic arthritis, DVT, PE, cardiopulmonary complications and . The patient expressed a thorough understanding of the risks and benefits of surgery and has elected to proceed. Consent was signed. Particular risks discussed included risks of infection risks of persistent extensor lag and weakness for need for additional procedures were discussed. Surgeon: Nuvia Francis Click Yes if Unassisted: Yes Anesthesia Type: General and Local Operative Notes Findings: Distal rupture quadriceps tendon the level of the patella started through the medial retinaculum and then transversely across the quadriceps tendon copious scar tissue. Partially visualized total knee arthroplasty intact. Patellar tendon intact. Proximally 3 cm of tendon retraction. Scar tissue was debrided. The quadriceps tendon was mobilized and a Krackow stitch placed in for traction. Due to the quality of the tissue augmented reconstruction was completed using Achilles allograft Closure Type: primary Specimen(s): none sent Prosthetic devices, grafts, tissues, transplants, or devices: Achilles allograft Arthrex double loaded knee FiberTak suture anchors 2.6 mm x 2 Applied: none Estimated Blood Loss (mL): 100 Blood products transfused: none Tourniquet time (min): 45 Procedure in detail: The patient was seen in the preoperative area the site of surgery was marked informed consent confirmed this was the right knee. The patient was brought back to the operating room by the anesthesia team positioned supine on the operative table. General anesthetic was administered. The right lower extremity was prepped and draped in the standard sterile fashion with a formal time-out procedure performed confirming the patient's side and site of surgery administration of appropriate preoperative antibiotic. All were in agreement. This was weight based antibiotics 3 g of Ancef. Attention was turned to the right knee the previous anterior total knee arthroplasty incision was identified and was well healed. There was a palpable gap at the superior patella consistent with the quadriceps tendon rupture. The Esmarch was used for exsanguination and the tourniquet raised on the thigh to 250 mmHg. This stayed elevated for approximately 4-5 minutes and then was found to be venous tourniquet and was released for the remainder of the case. The previous total knee arthroplasty scar was extended proximally 4 cm proximally and reopened from the level of the inferior patella to the proximal on the thigh 4 cm above the previous incision. . The thickened scar was excised sharply using the scalpel. Careful dissection was taken through the subcutaneous tissues to isolate the quadriceps tendon proximally and then this dissection was taken distally. The medial retinacular was torn and was isolated and the lateral retinaculum was partially torn and this was carefully dissected and exposed to expose the medial and lateral retinacular tears the distal quadriceps tear and the superior part of the knee joint. There was an effusion and hematoma that was evacuated. Visualized parts of the knee arthroplasty were intact. There were no signs of infection. Once the quadriceps was identified and mobilized the wound was irrigated with pulse lavage. Then the proximal patella was identified and planned for the FiberTak anchors. Two FiberTak anchors were placed Bovie was used to make ideal locations for this and then the anchors were drilled and placed in the superior patella. Additionally a 5. FiberWire was utilized for separate Krackow stitch more laterally in the quadriceps tendon once this was passed it was clamped. Next 1 limb of the double loaded fiber tacks was passed in a Krackow fashion through the central quadriceps and then the 1 limb from the more medial anchor was passed through the medial aspect of the quadriceps tendon. Then the 2nd sutures from the double loaded suture anchors were passed in a horizontal mattress fashion from the patella through the distal quadriceps. The other ends of the Krackow stitch were then passed through the distal quad as well. The knee was brought into full extension the quad was tensioned down to the patella and the Krackow limb from the suture anchors was tied to the other limb as a post this was done sequentially then the separate Krackow stitch not attached to an anchor was tied back into the remnant of the quadriceps on the more lateral aspect of the patella next the 2nd stitches from the double loaded fiber tacks that had been passed through the distal quadriceps in a horizontal mattress fashion were then tied these were passed 2 interlock with a Krackow stitches. Once this primary repair was achieved as expected the central area was very poor deficient tissue so the augmentation with the Achilles allograft was indicated. At this point the Achilles allograft was prepared. This came with a bone block which was removed. Then the thickened Achilles was fit onto the incision with the dinner fan tail draping over the patella and retinaculum distally. Proximally as the Achilles was double over and cracked out for additional tissue thickness. This was then positioned into the wound proximally on the quadriceps and stitched into place tacking it down. The allograft was then tacked down at the level of the quadriceps insertion on the patella the previous stitches from the primary part of the repair coming up through the allograft and tied over the top tacking this down. Then this was tacked down with 1. Ethibond medially and laterally to the retinacular and distally all the way to the level of the inferior patellar pole. Next additional 2. FiberWire were used side to side figure 8 style securing the allograft proximally to the quadriceps proper and then circumferentially along the retinaculum with a 1. Ethibond. This provided a secure repair the knee was taken through a range of motion and there was no notable gapping. Once this was completed the wound was then irrigated again with the pulsatile lavage. 1 g of vancomycin powder was placed into the wound. The subcutaneous tissues were closed with 2-0 PDS and 4-0 Monocryl and then a 3- 0 Stratafix Monocryl was run followed by Dermabond glue. 30 cc of 0.25% Marcaine with epinephrine were injected for local anesthetic. An Aquacel dressing was applied. The drapes were removed Rangel wraps were applied and the patient was positioned into the hinged knee brace in a locked position at 0? of extension. The patient was awoken from anesthesia and taken to the recovery unit in good condition there were no immediate complications from this procedure. Counts were correct. Complications: none Post-operative Condition: stable Disposition: PACU Plan for aftercare: Quadriceps rupture repair protocol will be in the brace locked in extension for weightbear as tolerated with the assistive devices at all times. Accept can open to 30? for getting into the car. Aquacel dressing in place. May shower with the Aquacel but we will need to be seated with the knee fully straight or alternatively keep brace and right lower extremity covered until 1st follow up visit. We will start aspirin 81 mg b.i.d. for DVT prophylaxis postoperatively. We will have 1 week prophylactic oral antibiotic prescription. Follow up in [facility] in 2 weeks for wound check.
== END 2024-12-23 12:10 | disposition home or self-care (01) ==
PROVIDERS: Referring Provider Orthopaedic Surgery Foot and Ankle Surgery; Visit Provider Orthopaedic Surgery Foot and Ankle Surgery
PROC: (CPT 27385; principal; 2024-12-23 07:45)
DX: S76.111A Strain of right quadriceps muscle, fascia and tendon, initial encounter (principal); S80.01XA Contusion of right knee, initial encounter; W19.XXXA Unspecified fall, initial encounter; Z96.651 Presence of right artificial knee joint
CPT/HCPCS: 27386; C1713; J0330; J0690; J1100; J1171; J2405; J2704; J3010; J3490